=== PATIENT | female | born 1940 | race Caucasian/White ===

== ENCOUNTER 2017-09-26 08:39 | Observation (INO) | payer BC ==
[2017-09-26] VITALS (18 sets, daily range): BP systolic 127–186; BP diastolic 68–108
[~2017-09-26] VITALS: Ht 172.7 cm; Wt 67.6 kg
--- NOTE | ~2017-09-26 | H ---
[address] [address] HISTORY AND PHYSICAL Name: OLENA VALLADARES Room: [address] Dat Mckeon#: [id number] Admission: 09/26/17 Attend Phys: Santosh James MD, Discharge: 09/27/17 Date of : 36 Report #: [id number] THIS REPORT FOR: //name// Please refer to the History and Physical performed in the physician's office. By: [facility]0Medical Records Staff NICKI /ORAL
[~2017-09-26 08:39] MED LIST: ADULT LOW DOSE81 MG PO; ALPRAZOLAM 0.0.25 M1 PO; ALTACE10 M1 PO; ATORVASTATIN CA40 MG PO; BRILINTA60 MG PO; CELEXA 20 MG TA20 M1 PO; CELEXA20 MG PO; COREG6.25 MG PO; DILANTIN100 MG PO; HYDROCHLOROTH12.5 MG PO; IMDUR 30 MG TAB30 M1 PO; LIPITOR40 MG PO; LISINOPRIL10 MG PO; LOPRESSOR25 OR; LOPRESSOR25 PO; LOPRESSOR50 PO; MYSOLINE250 M1 PO; NITROGLYCERIN0.4 MG SL; OCUVITE TABLET1 EAC1 PO; PHENYTOIN SODI100 MG PO; PLAVIX 75 MG TA75 MG PO; PRIMIDONE 250M250 MG PO; SIMVASTATIN40 MG PO; SIMVASTATIN80 MG PO; TRAMADOL
[2017-09-26 09:37] LABS: HEMATOCRIT 42.4 % (37.0-47.0); HEMOGLOBIN 14.1 gm/dL (12.0-15.0); MCH 30.3 pg (26.0-34.0); MCHC 33.3 g/dL (28.0-37.0); MCV 90.9 fL (80.0-100.0); MPV 8.8 fl. (7.2-11.1); RBC 4.66 mil/uL (4.20-5.00); RDW-CV 14.9 % (10.5-14.5); WBC 4.9 thou/uL (4.0-11.0)
[2017-09-26 09:45] LABS: ANION GAP 8 mmol/L (7-16); BUN 11 mg/dL (7-18); CALCIUM 8.2 mg/dL (8.5-10.1); CHLORIDE 105 mmol/L (98-107); CO2 25 mmol/L (21-32); CREATININE 0.8 mg/dL (0.6-1.3); GLUCOSE 112 mg/dL (70-99); POTASSIUM 4.1 mmol/L (3.5-5.1); SODIUM 138 mmol/L (136-145)
[2017-09-26 09:49] LABS: ALBUMIN 3.5 g/dL (3.4-5.0); ALKALINE PHOSPHATASE 131 U/L (46-116); CHOLESTEROL 191 mg/dL (<200); HDL CHOLESTEROL 72 mg/dL (>40); LDL CHOLESTEROL 101 mg/dL (<100); SGOT 27 U/L (15-37); SGPT 21 U/L (30-65); TC:HDL 2.7 Ratio (Not establshd); TOTAL BILIRUBIN 0.3 mg/dL (<0.1-1.0); TOTAL PROTEIN 7.2 g/dL (6.4-8.2); TRIGLYCERIDE 93 mg/dL (<150); VLDL 19 mg/dL (<40)
[2017-09-26 09:51] LABS: SERUM ASSESSMENT Clear
[2017-09-26 09:52] LABS: APTT 28.2 Seconds (25.0-31.3); INR 1.1; PROTIME 11.1 Seconds (9.20-11.50)
[2017-09-26] MEDS ORDERED: BRILINTA90 MG PO (15:23)
[2017-09-26] MEDS ORDERED: VESICARE10 M1 PO (15:26)
[2017-09-26] MEDS ORDERED: PLAVIX 75 MG TA75 M1 PO (15:28)
[2017-09-26] MEDS ORDERED: LOPRESSOR50 PO (15:31)
[2017-09-26] MEDS ORDERED: ALTACE10 MG PO (15:34)
--- NOTE | 2017-09-26 17:29 | EKG ---
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
--- NOTE | 2017-09-26 17:31 | EKG ---
[place] [address] ELECTROCARDIOGRAM REPORT Name: OLENA VALLADARES Room: [address]R.#: [id number] Admission: 09/26/17 Attend Phys: Santosh James MD, Discharge: Date of : 36 Report #: [id number] THIS REPORT FOR: //name// [facility] Test Date: 2017-09-26 Test Time: 14:22:28 Pat Name: OLENA VALLADARES Department: Room: 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
[2017-09-27] VITALS (8 sets, daily range): BP systolic 132–169; BP diastolic 49–85
[2017-09-27 04:44] LABS: HEMATOCRIT 39.2 % (37.0-47.0); HEMOGLOBIN 13.2 gm/dL (12.0-15.0); MCH 30.7 pg (26.0-34.0); MCHC 33.7 g/dL (28.0-37.0); MPV 8.7 fl. (7.2-11.1); RBC 4.31 mil/uL (4.20-5.00); RDW-CV 14.7 % (10.5-14.5); WBC 6.8 thou/uL (4.0-11.0)
[2017-09-27 05:20] LABS: CALCIUM 8.2 mg/dL (8.5-10.1); CREATININE 0.8 mg/dL (0.6-1.3); POTASSIUM 4.1 mmol/L (3.5-5.1); TOTAL BILIRUBIN 0.3 mg/dL (<0.1-1.0); TOTAL PROTEIN 5.9 g/dL (6.4-8.2); TROPONIN-I LEVEL 0.47 ng/mL (<0.06)
--- NOTE | 2017-09-27 16:11 | D ---
[address] [address] DISCHARGE SUMMARY Name: ERICKEMILYOLENA Room: [address] Dat Mckeon#: [id number] Admission: 09/26/17 Attend Phys: Santosh James MD, Discharge: 09/27/17 Date of : 36 Report #: [id number] THIS REPORT FOR: //name// CC: Santosh James [facility] DATE OF SERVICE: 09/27/2017 FINAL DISCHARGE DIAGNOSES: 1. Coronary artery disease. 2. Status post stenting of the left main, proximal left anterior descending and mid left anterior descending. 3. Hypertension. 4. Aortic insufficiency. 5. Hyperlipoproteinemia. 6. Hyperlipidemia. PROCEDURES: 09/26/2017-left heart catheterization, selective coronary arteriography, and percutaneous coronary intervention to the distal left main and proximal LAD and mid LAD with four drug-eluting stents deployed. The patient was admitted to the hospital with recurring and unstable angina in the context of known coronary artery disease. She had undergone recent catheterization, which revealed a long diffuse 90% right coronary artery stenosis. Echocardiogram revealed slight dyskinesis of the inferobasilar segment on the apical views and the inferior wall on the basilar views suggesting an infarcted segment. I was concerned that the high grade left main and LAD stenosis were responsible for her recurrent angina in this context, recatheterization was performed. I ultimately performed a complex intervention with lesion preparation and deployment of two drug-eluting stents in the mid LAD, one in the distal left main and proximal LAD and one in the proximal-mid LAD with 0% mid LAD, 0% proximal LAD and 10% left main residual narrowing following stent deployment. The patient did well post-procedurally and there was good hemostasis at the right femoral site of catheterization. Laboratory on 09/27/2017, revealed a sodium of 140, potassium 4.1, BUN 10, creatinine 0.8, glucose 109. Troponin amisha inconsequentially to 0.47. Hemoglobin 13.3, white blood cell count 6800 with 128,000 platelets. The patient ambulated in the hallways without difficulty and was discharged to home on 09/27/2017 on the following medications: Aspirin 81 mg daily, atorvastatin 80 mg daily, carvedilol 6.25 mg b.i.d., citalopram 20 mg daily, isosorbide mononitrate 30 mg daily, metoprolol tartrate 50 mg b.i.d., 350 mg daily, primidone or Mysoline 500 mg daily, ramipril 10 mg daily, solifenacin succinate 10 mg daily, ticagrelor or Brilinta 90 mg b.i.d. and vitamin A, C, and E one tablet daily. She is discharged to home in stable condition with followup with myself on 10/07/2017, and her continuing care with [place] [address] DISCHARGE SUMMARY Name: ERICKEMILYOLENA Room: [address] Dat Mckeon#: [id number] Admission: 09/26/17 Attend Phys: Santosh James MD, Discharge: 09/27/17 Date of : 36 Report #: [id number] The patient is discharged to home in stable condition on the aforementioned medications with followup as iterated above. The patient discharged from ICU 2 on 09/27/2017. <ELECTRONICALLY SIGNED> By: Santosh James MD, [facility] 09/27/17 1611 0947 1519Santosh James MD, [facility] /nt
--- NOTE | 2017-09-27 17:36 | EKG ---
[place] [address] ELECTROCARDIOGRAM REPORT Name: JACQUELYNOLENA Travis Room: [address] M.R.#: [id number] Admission: 09/26/17 Attend Phys: Santosh James MD, Discharge: 09/27/17 Date of : 36 Report #: [id number] THIS REPORT FOR: //name// [facility] Test Date: 2017-09-27 Test Time: 08:28:20 Pat Name: OLENA VALLADARES Department: Room: 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1940 Requested By: Santosh James Order Number: [id number] Emili MD: Santosh James Measurements Intervals [place] Rate: 83 P: 56 [place]: 157 QRS: -63 QRSD: 148 T: 124 QT: 432 QTc: 508 Interpretive Statements Sinus rhythm Atrial premature complex Left bundle branch block Compared to ECG 09/26/2017 14:22:28 No significant changes Electronically Signed On 09-27-2017 17:36:33 CDT by Santosh James [email or web address] <ELECTRONICALLY SIGNED> By: Santosh James MD, [facility] 09/27/17 1736 Santosh James MD, [facility] /EPI
--- NOTE | 2017-10-04 13:18 | CARD ---
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 HODAN Place w/wo Plasty Single LAD, HODAN Place w/wo Plasty Single Left Main Indication Unstable angina Risk Factors Hypercholesterolemia, Hypertension Admission/Lab Medications/Medications given during procedure Aspirin, Platelet Aff. Inhib., Angiomax bolus and infusion Procedure Narrative The patient was brought electively to the Cardiac Catheterization Laboratory and was prepped and draped in a sterile manner. The right femoral was infiltrated with 2% Lidocaine subcutaneous anesthesia. A [place] 6 FR sheath was inserted into the . Coronary angiography was performed using coronary diagnostic catheters. The right coronary system was accessed and visualized with a 6 Fr JR4 catheter. The left coronary system was accessed and visualized with a 6 Fr JL4 catheter. The left ventricle was accessed and visualized with a 6 Fr Pigtail catheter. Left ventricular/Aortic Valve gradient assessed via catheter pullback. Pre-demployment femoral angiogram was performed . Closure device was deployed with a 6 Fr Fr Angioseal STS 6Fr. Hemostasis was obtained with manual pressure following sheath removal without any complications. There [place] [address] CARDIAC CATH REPORT Name: OLENA VALLADARES Room: [address] MKeli#: [id number] Admission: 09/26/17 Attend Phys: Santosh James MD, Discharge: 09/27/17 Date of : 36 Report #: [id number] Fluoro Time: 26.3 minutes Dose: DAP 003209 cGycm2 2767.32 mGy Contrast Type and Amount: Visipaque 720 ml Coronary Angiography The patient's coronary anatomy is right dominant. Diagnostic Cath Left Main 80% diffuse stenosis with heavy calcification LAD 40% proximal narrowing with 90% calcified mid vessel stenosis Circumflex 30% proximal narrowing with 30% narrowing of the first marginal branch Right Coronary Diffusely diseased vessel with 80-90% stenosis throughout the moderate sized dominant vessel (as previously defined) Hemodynamics The aortic pressure is 201/85 mmHg with a mean of 127 mmHg. The left ventricular pressure is 181/6 mmHg with a mean of mmHg. The left ventricular end diastolic pressure is 20 mmHg. Pullback from the left ventricle to the aorta revealed no gradient across the aortic valve. PCI Technique Lesion Percutaneous coronary intervention was performed on the mid left anterior descending artery segment. The lesion stenosis prior to intervention was 90% with DUNG 3 flow. A XB LAD 3.5 SH Guide Catheter was used to engage the LCA ostium. A IG: ProwaterFlex 180CM Interventional Guidewire was used to cross the lesion. BALLOON DILATION A Balloon catheter Trek RX 2.25 X 12 was inserted and inflated up to 12.00atm for 9seconds. STENT DEPLOYMENT A drug-eluting stent Xience Alpine RX 2.5X18 was inserted and inflated up to 10.00atm for 10seconds. Additional Inflation: 10.00atm for 5seconds. Final angiography reveals 0 % stenosis with DUNG 3 flow. PCI Technique Lesion 2 Percutaneous Coronary Intervention was performed on the LM. The lesion stenosis prior to intervention was 80% with DUNG 3 flow. A 6FR XB LAD 3.5 Guide Catheter was used to engage the ostium. A IG: [place] [address] CARDIAC CATH REPORT Name: OLENA VALLADARES Room: [address] M.R.#: [id number] Admission: 09/26/17 Attend Phys: Santosh James MD, Discharge: 09/27/17 Date of : 36 Report #: [id number] ProwaterFlex 180CM Interventional Guidewire was used to cross the lesion. Balloon Dilation A Balloon catheter Trek RX 2.25 X 12 was inserted and inflated up to 16.00atm for 10seconds. Stent Deployment A drug-eluting stent Xience Alpine RX 3.0X15, 3.5x8 was inserted and inflated up to 12.00atm for 7seconds. Additional Inflation: 14.00atm for 7seconds. Post Stent Deployment Balloon Dilation A Balloon catheter NC Trek RX 3.5 X 8 was inserted and inflated up to 14.00atm for 8seconds. Final angiography reveals 10 % stenosis with DUNG 3 flow. Comments This was a high risk procedure by virtue of the diffusely calcified severe left main coronary stenosis which required unprotected left main stenting PCI Technique Lesion Percutaneous coronary intervention was performed on the left main coronary artery. BALLOON DILATION A Balloon catheter NC Trek RX 3.0 X 12 was inserted and inflated up to 16atm for 8seconds. Additional Inflation: 16atm for 6seconds. STENT DEPLOYMENT A drug-eluting stent Xience Alpine RX 3.5X8 was inserted and inflated up to 12atm for 10seconds. PCI Technique Lesion 3 Percutaneous Coronary Intervention was performed on the mid left anterior descending artery segment. Stent Deployment A drug-eluting stent Xience Alpine RX 2.5X12 was inserted and inflated up to 8.00atm for 8seconds. Additional Inflation: 8.00atm for 6[place] [address] CARDIAC CATH REPORT Name: OLENA VALLADARES Room: [address] Dat Mckeon#: [id number] Admission: 09/26/17 Attend Phys: Santosh James MD, Discharge: 09/27/17 Date of : 36 Report #: [id number] Conclusion #1 significant coronary artery disease characterized by the following: A 80% diffuse left main coronary stenosis which was heavily calcified B 40% proximal and 90% calcified mid LAD stenosis C moderate size nondominant circumflex with 30% proximal narrowing and 30% first marginal narrowing D recently defined diffusely diseased right coronary artery with 80-90% calcified stenosis throughout #2 moderate systemic systolic hypertension with modest elevation of left ventricular end-diastolic pressure at rest #3 successful percutaneous coronary intervention with deployment of 2 drug-eluting stents at the site of 90% mid LAD stenosis with 0% residual narrowing and DUNG-3 flow to the distal vessel #4 successful percutaneous coronary intervention with deployment of 2 drug-eluting stents spanning the 80% heavily calcified left main coronary stenosis with 10% residual narrowing and DUNG-3 flow to the distal circulation Recommendations Cardiac Risk Reduction Program Aggressive Medical Therapy Medications Administered Aspirin (any) Ticagrelor <ELECTRONICALLY SIGNED> By: Santosh James MD, FAC 10/04/17 1318 1318 1318Santosh James MD, FACC /INF
== END 2017-09-27 14:20 | disposition home or self-care (01) ==
LOC: M.CL 08:39 → M.ICU 13:01 → M.TBA-CV 13:01 → M.ICU 14:49
PROVIDERS: ADMIT Internal Medicine
DX: I25.10 Atherosclerotic heart disease of native coronary artery without angina pectoris (principal); I10 Essential (primary) hypertension; I35.1 Nonrheumatic aortic (valve) insufficiency; E78.5 Hyperlipidemia, unspecified; Z95.5 Presence of coronary angioplasty implant and graft